=== PATIENT | female | born 2000 | race Two or more races ===

== ENCOUNTER 2021-01-31 13:03 | Observation (INO) | payer MEDICAID ==
[2021-01-31] MEDS ORDERED: PREN-96 PO (14:22)
== END 2021-01-31 14:34 | disposition home or self-care (01) ==
LOC: LDRP 13:03
PROVIDERS: ADMIT Obstetrics & Gynecology; ATTEND Obstetrics & Gynecology
DX: O36.5930 Maternal care for other known or suspected poor fetal growth, third trimester, not applicable or unspecified (principal); O99.513 Diseases of the respiratory system complicating pregnancy, third trimester; J45.909 Unspecified asthma, uncomplicated; O99.333 Smoking (tobacco) complicating pregnancy, third trimester; F17.200 Nicotine dependence, unspecified, uncomplicated; Z3A.36 36 weeks gestation of pregnancy
CPT/HCPCS: 59025; 76818; 81002; 94760; G0378; G0379

== ENCOUNTER 2021-02-07 13:15 | Observation (INO) | payer MEDICAID ==
[~2021-02-07 13:15] MED LIST: PREN-96 PO
== END 2021-02-07 14:54 | disposition home or self-care (01) ==
LOC: LDRP 13:15
PROVIDERS: ADMIT Obstetrics & Gynecology; ATTEND Obstetrics & Gynecology
DX: O36.5930 Maternal care for other known or suspected poor fetal growth, third trimester, not applicable or unspecified (principal); Z3A.37 37 weeks gestation of pregnancy; Z79.899 Other long term (current) drug therapy
CPT/HCPCS: 59025; 76818; 81002; 82948; G0378; G0379

== ENCOUNTER 2021-02-10 10:17 | Observation (INO) | payer MEDICAID ==
[~2021-02-10] VITALS: Ht 160 cm; Wt 71.2 kg
== END 2021-02-10 16:16 | disposition home or self-care (01) ==
LOC: LDRP 13:32
PROVIDERS: ADMIT Obstetrics & Gynecology Obstetrics; ATTEND Obstetrics & Gynecology Obstetrics
DX: O36.5930 Maternal care for other known or suspected poor fetal growth, third trimester, not applicable or unspecified (principal); Z3A.38 38 weeks gestation of pregnancy
CPT/HCPCS: 59025; 76818; 81002; 94760; G0378

== ENCOUNTER 2021-02-12 14:15 | Observation (INO) | payer MEDICAID | END 2021-02-13 09:36 | disposition home or self-care (01) | LOC: LDRP 02-13 08:14 | PROVIDERS: ADMIT Obstetrics & Gynecology; ATTEND Obstetrics & Gynecology | DX: O36.5930 Maternal care for other known or suspected poor fetal growth, third trimester, not applicable or unspecified (principal); Z3A.38 38 weeks gestation of pregnancy | CPT/HCPCS: 59025; 76818; 81002; 94760; G0378; G0379 ==

== ENCOUNTER 2021-02-17 09:04 | Observation (INO) | payer MEDICAID | END 2021-02-17 11:47 | disposition home or self-care (01) | LOC: LDRP 10:00 | PROVIDERS: ADMIT Obstetrics & Gynecology Obstetrics; ATTEND Obstetrics & Gynecology Obstetrics | DX: O36.5930 Maternal care for other known or suspected poor fetal growth, third trimester, not applicable or unspecified (principal); O99.333 Smoking (tobacco) complicating pregnancy, third trimester; F17.200 Nicotine dependence, unspecified, uncomplicated; Z3A.39 39 weeks gestation of pregnancy | CPT/HCPCS: 59025; 76818; 81002; 94760; G0378 ==

== ENCOUNTER 2021-02-20 10:11 | Observation (INO) | payer MEDICAID | END 2021-02-20 11:20 | disposition home or self-care (01) | LOC: LDRP 10:24 | PROVIDERS: ADMIT Obstetrics & Gynecology; ATTEND Obstetrics & Gynecology | DX: O36.5930 Maternal care for other known or suspected poor fetal growth, third trimester, not applicable or unspecified (principal); Z3A.39 39 weeks gestation of pregnancy | CPT/HCPCS: 59025; 76818; 81002; 94760; G0378; G0379 ==

== ENCOUNTER 2021-02-22 10:21 | Observation (INO) | payer MEDICAID | END 2021-02-22 11:40 | disposition home or self-care (01) | LOC: LDRP 10:21 | PROVIDERS: ADMIT Obstetrics & Gynecology Obstetrics; ATTEND Obstetrics & Gynecology Obstetrics | DX: O36.5930 Maternal care for other known or suspected poor fetal growth, third trimester, not applicable or unspecified (principal); Z3A.40 40 weeks gestation of pregnancy | CPT/HCPCS: 59025; 76818; 81002; 94760; G0378; G0379 ==

== ENCOUNTER 2021-02-24 10:00 | Observation (INO) | payer MEDICAID | END 2021-02-24 11:36 | disposition home or self-care (01) | LOC: LDRP 10:00 | PROVIDERS: ADMIT Obstetrics & Gynecology Obstetrics; ATTEND Obstetrics & Gynecology Obstetrics | DX: O48.0 Post-term pregnancy (principal); O36.5930 Maternal care for other known or suspected poor fetal growth, third trimester, not applicable or unspecified; O62.9 Abnormality of forces of labor, unspecified; Z3A.40 40 weeks gestation of pregnancy | CPT/HCPCS: 59025; 76818; 81002; 94760; G0378 ==

== ENCOUNTER 2021-02-25 22:55 | Inpatient (IN) | payer MEDICAID ==
[~2021-02-25] VITALS: Ht 2.5 cm; Wt 0.0 kg
[2021-02-25] MEDS ORDERED: BUTORPHANOL TARTRATE 2 MG/1 ML VIAL IV PRN ×2 (23:15)
[2021-02-25] MEDS ORDERED: PHISODERM TOP SOLN 240ML BTL TOP PRN (23:15)
[2021-02-25] MEDS ORDERED: LIDOCAINE 2%HCL (LOCAL ANESTH.) INJ 20ML MDV IJ PRN (23:15)
[2021-02-25] MEDS ORDERED: PROMETHAZINE HCL 25 MG/ML 1ML IV PRN (23:15)
[2021-02-25] MEDS ORDERED: LACT. RINGERS/OXYTOCIN 20UNITS 500 ML IV ONE ×2 (23:15→23:45)
[2021-02-25] MEDS ORDERED: DERMOPLAST 60ML BOTTLE TOP PRN (23:15)
[2021-02-26] MEDS: LACTATED RINGER'S 1,000 ML IV SCH ×3 (00:02→09:15)
[2021-02-26 00:18] LABS: INR 0.92 (0.9-1.15); Partial Thromboplastin Time 25.4 sec (23.6-33.0)
[2021-02-26 00:34] LABS: Basophils # (auto) 0 10 ^3/uL (0-0.2); Basophils % (auto) 0.2 % (0.0-2.0); Eosinophils # (auto) 0 10 ^3/uL (0-0.8); Eosinophils % (auto) 0.2 % (0.0-7.0); Hematocrit 37.2 % (36.0-46.0); Hemoglobin 12.1 g/dL (12.2-16.2); Lymphocytes # (auto) 3.4 10 ^3/uL (0.4-5.4); Lymphocytes % (auto) 27.6 % (10.0-50.0); Mean Corpuscular Hemoglobin 27.4 pg (28.0-32.0); Mean Corpuscular Hgb Conc. 32.4 g/dL (32.0-36.0); Mean Corpuscular Volume 84.5 fL (80.0-100.0); Monocytes # (auto) 0.7 10 ^3/uL (0-1.3); Monocytes % (auto) 6.1 % (0.0-12.0); Neutrophils # (auto) 8.1 10 ^3/uL (1.6-8.6); Neutrophils % (auto) 65.9 % (37.0-80.0); Nucleated Red Blood Cells % 0.1 %; Red Blood Cells 4.41 10^6/uL (4.0-5.20); Red Cell Distribution Width 13.4 % (11.8-14.3); White Blood Cell 12.3 10^3/uL (4.4-10.8)
[2021-02-26] MEDS: miSOPROStol 50 MCG per PRE-CUT 1/2 TAB PO PRN ×2 (00:41→05:20)
[2021-02-26 00:42] LABS: Potassium 4.1 mmol/L (3.5-5.1)
[2021-02-26 00:49] LABS: Albumin 2.9 g/dL (3.4-5.0); BUN/Creatinine Ratio 12.3
[2021-02-26 00:50] LABS: Bilirubin, Total 0.1 mg/dL (0.2-1.0); Total Protein 6.8 g/dL (6.4-8.2)
[2021-02-26 01:04] LABS: Urine Amorphous Crystal FEW /hpf (None Seen); Urine Bacteria FEW /hpf (None Seen); Urine Blood Negative /uL (Negative); Urine Specific Gravity 1.017 (1.001-1.035); Urine WBC 3 /hpf (0 - 5)
[2021-02-26 01:27] LABS: Amphetamine Screen, Urine NEGATIVE (NEGATIVE); Barbiturate Scree,Urine NEGATIVE (NEGATIVE); Benzodiazephine Screen, Urine NEGATIVE (NEGATIVE); Cannabinoid Screen, Urine NEGATIVE (NEGATIVE); Cocaine Screen, Urine NEGATIVE (NEGATIVE); Opiate Scree,Urine NEGATIVE (NEGATIVE); Phencyclidine Screen, Urine NEGATIVE (NEGATIVE)
[2021-02-27] MEDS ORDERED: LACT. RINGERS/OXYTOCIN 20UNITS 1,000 ML IV SCH (00:15)
[2021-02-27] MEDS: LACTATED RINGER'S 1,000 ML IV SCH ×2 (02:26→11:49)
[2021-02-27 05:07] LABS: RPR Non Reactive (Non Reactive)
[2021-02-27] MEDS ORDERED: ROPIVACAINE HCL 200 ML EPI SCH (05:30)
[2021-02-27] MEDS ORDERED: NALOXONE HCL 0.4 MG/ML VIAL IV ONE (05:30)
[2021-02-27] MEDS ORDERED: ePHEDrine SULFATE 50 MG/ML AMP IV ONE (05:30)
[2021-02-27] MEDS ORDERED: fentaNYL CITRATE 100 MCG/2 ML VL IV ONE (05:30)
[2021-02-27] MEDS ORDERED: LACTATED RINGER'S 1,000 ML IV ONE (05:30)
[2021-02-27] MEDS ORDERED: LIDOCAINE HCL 2 %PF INJ 10ML AMP IJ ONE (05:30)
[2021-02-27] MEDS ORDERED: METHYLERGONOVINE MALEATE 0.2 MG/ML AMP IM PRN (12:15)
[2021-02-27] MEDS ORDERED: miSOPROStol 100 mcg TAB PR PRN (12:15)
[2021-02-27] MEDS ORDERED: miSOPROStol 100 mcg TAB SL PRN (12:15)
[2021-02-27] MEDS ORDERED: CARBOPROST TROMETHAMINE 250 MCG/1ML VIAL IM ONE (12:42)
[2021-02-27] MEDS ORDERED: ONDANSETRON HCL 4 MG/2 ML VIAL IV PRN (12:45)
[2021-02-27] MEDS ORDERED: CARBOPROST TROMETHAMINE 250 MCG/1ML VIAL IM PRN (12:45)
[2021-02-27] MEDS ORDERED: ONDANSETRON ODT 4 MG TAB PO PRN (14:00)
[2021-02-27] MEDS: WITCH HAZEL-GLYCERIN PAD TOP PRN (14:37)
[2021-02-27 15:00] VITALS: BP 107/62
[2021-02-27] MEDS: DIPHENOXYLATE W/ATROPINE 2.5 MG TAB PO SCH ×2 (15:27→22:02)
[2021-02-27] MEDS: ceFAZolin 1GM/50ML 50 ML IV SCH ×2 (15:28→22:01)
[2021-02-27] MEDS: ACETAMINOPHEN 325 MG TAB PO PRN ×2 (17:26→22:02)
[2021-02-27] MEDS ORDERED: IBUPROFEN 800 MG TAB PO SCH (18:00)
[2021-02-27 19:00] VITALS: BP 100/55
[2021-02-27] MEDS ORDERED: DOCUSATE SOD 100 MG CAP PO SCH (22:00)
[2021-02-27 23:00] VITALS: BP 91/51
[2021-02-28] MEDS ORDERED: IBUPROFEN 800 MG TAB PO PRN (02:15)
[2021-02-28 03:00] VITALS: BP 92/54
[2021-02-28] MEDS: ceFAZolin 1GM/50ML 50 ML IV SCH (05:37)
[2021-02-28 07:00] VITALS: BP 99/51
[2021-02-28] MEDS: WITCH HAZEL-GLYCERIN PAD TOP PRN (07:06)
[2021-02-28 11:15] VITALS: BP 95/47
[2021-02-28 15:15] VITALS: BP 99/50
== END 2021-02-28 15:00 | disposition home or self-care (01) | DRG 560 ==
LOC: LDRP 22:55
PROVIDERS: ADMIT Obstetrics & Gynecology; ATTEND Obstetrics & Gynecology
PROC: 0KQM0ZZ Repair Perineum Muscle, Open Approach (ICD-10-PCS; principal; 2021-02-27)
PROC: 10E0XZZ Delivery of Products of Conception, External Approach (ICD-10-PCS; 2021-02-27)
PROC: 0W8NXZZ Division of Female Perineum, External Approach (ICD-10-PCS; 2021-02-27)
DX: O69.81X0 Labor and delivery complicated by cord around neck, without compression, not applicable or unspecified (principal); Z37.0 Single live birth; O70.1 Second degree perineal laceration during delivery; Z3A.40 40 weeks gestation of pregnancy; Z20.822 Contact with and (suspected) exposure to COVID-19
CPT/HCPCS: 36415; 59025; 59409; 62282; 80053; 80307; 81001; 81002; 85025; 85610; 85730; 86592; 86850; 86900; 86901; 87426; 94760; 96360; 96361; 96365; 96366; 96372; 96374; 96375; G0378; J0690; J2405; J2590